=== PATIENT | male | born 1975 | race Two or more races ===

== ENCOUNTER 2019-01-04 20:27 | Emergency (ER) | payer SELFPAY ==
[2019-01-05 01:20] LABS: APPEARANCE,URINE CLOUDY; BILIRUBIN,URINE NEGATIVE (NEGATIVE); COLOR,URINE YELLOW; GLUCOSE, URINE NEGATIVE (NEGATIVE); KETONES,URINE NEGATIVE (NEGATIVE); LEUKOCYTE ESTERASE,URINE NEGATIVE (NEGATIVE); NITRITE,URINE NEGATIVE (NEGATIVE); PROTEIN,URINE NEGATIVE (NEGATIVE); URINE SPECIFIC GRAVITY 1.021; UROBILINOGEN,URINE NEGATIVE mg/dL (<2.0)
[2019-01-05] MEDS ORDERED: CEFTRIAXONE INJ 250 MG VIAL IM ONE (02:15)
[2019-01-05] MEDS ORDERED: AZITHROMYCIN 250 MG TABLET PO ONE (02:15)
--- NOTE | 2019-01-05 02:19 | ER Document Report ---
ED General - General Chief Complaint: Pain With Urination Stated Complaint: URINARY PROBLEM Time Seen by Provider: 01/05/19 00:16 Notes: Patient is a 43-year-old male without chronic medical problems who presents with approximately 1 week of dysuria and urinary frequency. States that his symptoms are gradually, have gotten progressively worse since onset. Regards him as being mild to moderate. States he started taking amoxicillin several days ago and feels like this has helped his symptoms. No obvious worsening factor. Denies any history of the same in the past. Has not seen his primary care physician regarding today's concerns. Denies testicular tenderness, lower abdominal pain, fever or constitutional symptoms. TRAVEL OUTSIDE OF THE [place] IN LAST 30 DAYS: No - Related Data Allergies/Adverse Reactions: No Known Allergies Allergy (Unverified 01/04/19 20:29) Past Medical History - General Information source: Patient - Social History Smoking Status: Never Smoker Frequency of alcohol use: Social Drug Abuse: None Family History: Reviewed & Not Pertinent Patient has suicidal ideation: No Patient has homicidal ideation: No Renal/ Medical History: Denies: Hx Peritoneal Dialysis Review of Systems - Review of Systems Notes: Constitutional: Negative for fever. HENT: Negative for sore throat. Eyes: Negative for visual changes. Cardiovascular: Negative for chest pain. Respiratory: Negative for shortness of breath. Gastrointestinal: Negative for abdominal pain, vomiting or diarrhea. Genitourinary: Positive for dysuria. Musculoskeletal: Negative for back pain. Skin: Negative for rash. Neurological: Negative for headaches, weakness or numbness. 10 point ROS negative except as marked above and in HPI. Physical Exam - Vital signs Vitals: Temp Pulse Resp BP Pulse Ox 99.3 F 68 18 131/75 H 98 01/04/19 20:31 01/04/19 20:31 01/04/19 20:31 01/04/19 20:31 01/04/19 20:31 Interpretation: Normal Notes: PHYSICAL EXAMINATION: GENERAL: Well-appearing, well-nourished and in no acute distress. HEAD: Atraumatic, normocephalic. EYES: sclera anicteric, conjunctiva are normal. ENT: Moist mucous membranes. NECK: Normal range of motion LUNGS: Normal work of breathing HEART: 2+ radial pulses bilaterally Abdomen: Soft, nontender, no focal areas of tenderness : No penile lesions. No discharge from the urethral meatus. No testicular tenderness on palpation. No epididymal tenderness. EXTREMITIES: no pitting or edema. No cyanosis. NEUROLOGICAL: No focal neurological deficits. Moves all extremities spontaneously and on command. PSYCH: Normal mood, normal affect. SKIN: Warm, Dry, normal turgor, no rashes or lesions noted. Course - Re-evaluation Re-evalutation: 01/05/19 02:16 Patient presents with dysuria and urinary frequency. Denies penetrative sexual intercourse but states that he has received oral sex within the past 1 week. He is concerned with the possibility of sexually transmitted infections. His urinalysis is not consistent with an acute urinary tract infection although given his history of dysuria and urinary frequency I do suspect that he may have a urinary tract infection. The patient's urinalysis may be falsely normal as well as the patient has been taking amoxicillin for the past 3 days on his own and states that his symptoms have started to improve since doing so. He has been presumptively treated for gonorrhea and chlamydia and urine studies are pending. He has also been sent home on a 5-day course of cephalexin. Genitourinary exam unremarkable without evidence of epididymitis, orchitis, or penile lesions. At this time will discharge with return precautions and follow- up recommendations. Verbal discharge instructions given a the bedside and opportunity for questions given. Medication warnings reviewed. Patient is in agreement with this plan and has verbalized understanding of return precautions and the need for primary care follow-up in the next 24-72 hours. - Vital Signs Vital signs: Temp Pulse Resp BP Pulse Ox 99.3 F 68 18 131/75 H 98 01/04/19 20:31 01/04/19 20:31 01/04/19 20:31 01/04/19 20:31 01/04/19 20:31 Discharge - Discharge Clinical Impression: Dysuria, Urinary frequency Condition: Good Disposition: HOME, SELF-CARE Additional Instructions: You are being treated for possible urinary tract infection based on your symptoms. You were also presumptively treated for possible sexually transmitted infection. Please take all the antibiotics as directed even if your symptoms have improved. Please follow-up with your primary care physician as needed. Return to emergency room if you develop fever >101F, persistent vomiting, become lethargic, have severe pain in your sides, or any other symptoms that are concerning to you. Prescriptions: Cephalexin Monohydrate [Keflex 500 mg Capsule] 500 mg PO Q6H 5 Days capsule
[2019-01-05] MEDS ORDERED: LIDOCAINE 1% INJ-PF (10 MG/ML) 30 ML SDV ONE (02:20)
[2019-01-05 02:32] VITALS: BP 137/88
[2019-01-05 02:43] LABS: CHLAM PCR NOT DETECTED (NOT DETECT); GON PCR NOT DETECTED (NOT DETECT)
== END 2019-01-05 02:35 | disposition home or self-care (01) ==
LOC: EDBD → ER 20:27
DX: R30.0 Dysuria (principal); R35.0 Frequency of micturition; Z20.2 Contact with and (suspected) exposure to infections with a predominantly sexual mode of transmission
CPT/HCPCS: 99283; 96372; 36415; 87086; 81001; 87491; 87591; J3490; J0696